=== PATIENT | female | born 1990 | race Two or more races ===

== ENCOUNTER 2016-05-03 11:51 | Emergency (ER) | payer OTHER ==
[2016-05-03 12:04] VITALS: BP 111/70; PULSE 106; TEMP 99; BMI 18.8
--- NOTE | 2016-05-03 12:37 | PDOC ---
History of Present Illness - General Chief Complaint: Sore Throat Stated Complaint: SORE THROAT Time Seen by Provider: 05/03/16 12:09 History Source: Patient Exam Limitations: No Limitations - History of Present Illness Initial Comments: CHIEF COMPLAINT: HISTORY OF PRESENT ILLNESS: Vital signs on arrival are notable for pulse of 108. REVIEW OF SYSTEMS: GENERAL/CONSTITUTIONAL: Subjective fever/chills. No weakness. No weight change. HEAD, EYES, EARS, NOSE AND THROAT: No change in vision. No ear pain or discharge. No sore throat. CARDIOVASCULAR: No chest pain or shortness of breath. RESPIRATORY: No cough, wheezing, or hemoptysis. GASTROINTESTINAL: See history of present illness. GENITOURINARY: No dysuria, frequency, or change in urination. MUSCULOSKELETAL: No joint or muscle swelling or pain. No neck or back pain. SKIN: No rash or easy bruising. NEUROLOGIC: No headache, vertigo, loss of consciousness, or loss of sensation. PSYCHIATRIC: No depression or anxiety. ENDOCRINE: No increased thirst. No abnormal weight change. HEMATOLOGIC/LYMPHATIC: No anemia, easy bleeding, or history of blood clots. ALLERGIC/IMMUNOLOGIC: No hives or skin allergy. No latex allergy. PHYSICAL EXAM: GENERAL: The patient is awake, alert, and fully oriented, in no acute distress. HEAD: Normal with no signs of trauma. ENT: Pupils equal, round and reactive to light, extraocular movements intact, sclera anicteric, conjunctiva clear. Neck supple. LUNGS: Clear to auscultation bilaterally. Normal excursion. No respiratory distress or use of accessory muscles. CV: RRR, S1/S2, no MRG. Cap refill < 2 sec. ABDOMEN: Soft, non-distended, non-tender even to deep palpation, no hepatomegaly or splenomegaly, no masses. EXTREMITIES: Normal range of motion, no edema. NEUROLOGICAL: Normal speech, normal gait. CN II-XII grossly intact. PSYCH: Normal mood, normal affect. SKIN: Warm, dry, normal turgor, no rashes or lesions noted. Past History - Past Medical History Allergies/Adverse Reactions: Allergies Allergy/AdvReac Type Severity Reaction Status Date / Time shellfish derived Allergy Verified 05/03/16 12:02 shrimp Allergy Intermediate Swelling Uncoded 05/03/16 12:02 Home Medications: Ambulatory Orders NK [No Known Home Medication] 01/24/15 Asthma: No Cancer: No Cardiac Disorders: No Diabetes: No HTN: No Seizures: No Thyroid Disease: No Other medical history: none - Reproductive History (#): 4 Para: 1 Spontaneous : 2 - Immunization History Td Vaccination: No TDAP Vaccination: No Immunization Up to Date: No - Psycho/Social/Smoking Cessation Hx Anxiety: No Suicidal Ideation: No Smoking Status: No Smoking History: Never smoked Have you smoked in the past 12 months: Yes Number of Cigarettes Smoked Daily: 3 Information on smoking cessation initiated: Yes 'Breaking Loose' booklet given: 05/03/16 Hx Alcohol Use: No Drug/Substance Use Hx: No Substance Use Type: None Hx Substance Use Treatment: No *Physical Exam - Vital Signs Last Vital Signs Temp Pulse Resp BP Pulse Ox 99.0 F 106 H 18 111/70 100 05/03/16 12:02 05/03/16 12:02 05/03/16 12:02 05/03/16 12:02 05/03/16 12:02
[2016-05-03] MEDS ORDERED: IBUPROFEN 400 MG TABLET (FP) PO ONE ×2 (12:50→12:52)
--- NOTE | 2016-05-03 12:50 | PDOC ---
History of Present Illness - General Chief Complaint: Sore Throat Stated Complaint: SORE THROAT Time Seen by Provider: 05/03/16 12:09 History Source: Patient - History of Present Illness Timing/Duration: reports: other Associated Symptoms: reports: fever/chills, sore throat. denies: cough, earache , nasal congestion, nasal drainage, shortness of breath Past History - Past Medical History Allergies/Adverse Reactions: Allergies Allergy/AdvReac Type Severity Reaction Status Date / Time shellfish derived Allergy Verified 05/03/16 12:02 shrimp Allergy Intermediate Swelling Uncoded 05/03/16 12:02 Home Medications: Ambulatory Orders NK [No Known Home Medication] 01/24/15 Asthma: No Cancer: No Cardiac Disorders: No Diabetes: No HTN: No Seizures: No Thyroid Disease: No Other medical history: none - Reproductive History (#): 4 Para: 1 Spontaneous : 2 - Immunization History Td Vaccination: No TDAP Vaccination: No Immunization Up to Date: No - Psycho/Social/Smoking Cessation Hx Anxiety: No Suicidal Ideation: No Smoking Status: No Smoking History: Never smoked Have you smoked in the past 12 months: No Number of Cigarettes Smoked Daily: 3 Information on smoking cessation initiated: Yes 'Breaking Loose' booklet given: 05/03/16 Hx Alcohol Use: No Drug/Substance Use Hx: No Substance Use Type: None Hx Substance Use Treatment: No Review of Systems - Review of Systems Constitutional: Yes: Fever HEENTM: Yes: Throat Pain Respiratory: No: Cough, Shortness of Breath *Physical Exam - Vital Signs Last Vital Signs Temp Pulse Resp BP Pulse Ox 99.0 F 106 H 18 111/70 100 05/03/16 12:02 05/03/16 12:02 05/03/16 12:02 05/03/16 12:02 05/03/16 12:02 - Physical Exam General Appearance: Yes: Appropriately Dressed. No: Apparent Distress HEENT: positive: Normal ENT Inspection, TMs Normal, Pharynx Normal, Muffled/ Hoarse voice. negative: Scleral Icterus (R), Scleral Icterus (L) Neck: positive: Supple. negative: Lymphadenopathy (R), Lymphadenopathy (L) Respiratory/Chest: negative: Respiratory Distress Integumentary: positive: Dry, Warm Neurologic: positive: Fully Oriented, Alert, Normal Mood/Affect Medical Decision Making - Medical Decision Making 05/03/16 12:52 26 yo F, social smoker, here w/ sore throat w/ hoarseness and subj fever x 3 days. Multiple children at home w/ similar symptoms. Pt well christi w/ mild tachycardia but unremarkable exam otherwise. M/l viral. Dc w/ supportive treatment *DC/Admit/Observation/Transfer Diagnosis at time of Disposition: URI (upper respiratory infection) Qualifiers: URI type: unspecified viral URI Qualified Code(s): J06.9 - Acute upper respiratory infection, unspecified - Discharge Dispostion Disposition: HOME Condition at time of disposition: Good - Patient Instructions Printed Discharge Instructions: DI for Viral Upper Respiratory Infection -- Adult
== END 2016-05-03 12:53 | disposition home or self-care (01) ==
LOC: JERFT 11:51
DX: J06.9 Acute upper respiratory infection, unspecified (principal); F17.210 Nicotine dependence, cigarettes, uncomplicated
CPT/HCPCS: 84703; 99281-25

== ENCOUNTER 2017-11-26 10:43 | Emergency (ER) | payer SELFPAY ==
[2017-11-26 10:55] VITALS: BP 105/65; PULSE 76; TEMP 98.6; BMI 20.1
--- NOTE | 2017-11-26 11:39 | PDOC ---
History of Present Illness - General Chief Complaint: Injury Stated Complaint: LEFT FOOT PAIN Time Seen by Provider: 11/26/17 11:00 History Source: Patient Exam Limitations: No Limitations - History of Present Illness Initial Comments: 11/26/17 13:30 States was out last night, twisted foot and fell with hyperextension of left foot. Patient here with complaints of mid foot and ankle pain. Was able to walk- in but states his been hopping since yesterday. Has used no medication or relief Occurred: reports: just prior to arrival Severity: reports: mild, moderate Pain Location: reports: lower extremity (left foot and ankle ) Method of Injury: Yes: unknown, fall Modifying Factors: improves with: cold therapy Associated Symptoms (Fall): denies symptoms Past History - Travel Traveled outside of the country in the last 30 days: No Close contact w/someone who was outside of country & ill: No - Past Medical History Allergies/Adverse Reactions: Allergies Allergy/AdvReac Type Severity Reaction Status Date / Time shellfish derived Allergy Verified 11/26/17 10:47 shrimp Allergy Intermediate Swelling Uncoded 11/26/17 10:47 Home Medications: Ambulatory Orders Naproxen [Naprosyn -] 500 mg PO TID #30 tablet 11/26/17 Asthma: No Cancer: No Cardiac Disorders: No COPD: No Diabetes: No HTN: No Seizures: No Thyroid Disease: No - Reproductive History (#): 4 Para: 1 Spontaneous : 2 - Immunization History Td Vaccination: No TDAP Vaccination: No Immunization Up to Date: No - Suicide/Smoking/Psychosocial Hx Smoking Status: No Smoking History: Current every day smoker Have you smoked in the past 12 months: No Number of Cigarettes Smoked Daily: 3 Information on smoking cessation initiated: Yes 'Breaking Loose' booklet given: 11/26/17 Hx Alcohol Use: No Drug/Substance Use Hx: No Substance Use Type: None Hx Substance Use Treatment: No Review of Systems - Review of Systems Able to Perform ROS?: Yes Is the patient limited Serbian proficient: Yes Constitutional: Yes: Symptoms Reported, See HPI, Malaise Musculoskeletal: Yes: Symptoms Reported, See HPI, Joint Pain, Joint Swelling Integumentary: Yes: Symptoms Reported, See HPI, Bruising Neurological: Yes: Symptoms reported, See HPI All Other Systems: Reviewed and Negative *Physical Exam - Vital Signs Last Vital Signs Temp Pulse Resp BP Pulse Ox 98.6 F 76 18 105/65 100 11/26/17 10:47 11/26/17 10:47 11/26/17 10:47 11/26/17 10:47 11/26/17 10:47 - Physical Exam General Appearance: Yes: Nourished, Appropriately Dressed, Apparent Distress, Mild Distress HEENT: positive: MADDI, Normal ENT Inspection, Normal Voice, TMs Normal, Pharynx Normal Neck: positive: Supple. negative: Tender Respiratory/Chest: positive: Lungs Clear Musculoskeletal: positive: Normal Inspection Extremity: positive: Normal Capillary Refill, Swelling (with tenderness along the midfoot, no crepitus or step-offs, has no true point tenderness to medial or lateral malleolus, negative squeeze test). 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 Cast shoe and crutches provided. *DC/Admit/Observation/Transfer Diagnosis at time of Disposition: Left ankle sprain Qualifiers: Encounter type: initial encounter Involved ligament of ankle: unspecified ligament Qualified Code(s): S93.402A - Sprain of unspecified ligament of left ankle, initial encounter - Discharge Dispostion Disposition: HOME Condition at time of disposition: Stable Decision to Admit order: No - Prescriptions Prescriptions: Naproxen [Naprosyn -] 500 mg PO TID #30 tablet - Referrals - Patient Instructions Printed Discharge Instructions: DI for Ankle Sprain Additional Instructions: Rest, ice to area on and off for 15 minutes 4-6 times a day Avoid heavy lifting or exercise until pain and swelling is resolved or until further directed Keep area highly elevated to reduce swelling Use splints/David wrap as directed Followup with orthopedist in one to 2 days if not improving, if significantly improved may wait one week for followup with orthopedist May use Naprosyn 1500 milligram tablet every 8 hours as needed for pain - Post Discharge Activity
== END 2017-11-26 12:43 | disposition home or self-care (01) ==
LOC: JERFT 10:43 → JER 10:43 → JERFT 12:43
DX: S93.402A Sprain of unspecified ligament of left ankle, initial encounter (principal); X58.XXXA Exposure to other specified factors, initial encounter; Y93.89 Activity, other specified; Y92.9 Unspecified place or not applicable; F17.210 Nicotine dependence, cigarettes, uncomplicated
CPT/HCPCS: 73610-TC-LT-FY; 84703; 99281-25

== ENCOUNTER 2018-01-01 15:28 | Emergency (ER) | payer SELFPAY ==
[2018-01-01 15:34] VITALS: BP 115/71; PULSE 60; TEMP 99; BMI 19.2
[2018-01-01] MEDS ORDERED: KETOROLAC TROMETHAMINE 60 MG/2 ML VIAL IM ONE (15:58)
[2018-01-01] MEDS ORDERED: KETOROLAC TROMETHAMINE 60 MG/2 ML VIAL ONE (16:03)
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
== END 2018-01-01 16:11 | disposition home or self-care (01) ==
LOC: JERFT 15:28
PROC: 3E0233Z Introduction of Anti-inflammatory into Muscle, Percutaneous Approach (ICD-10-PCS; principal; 2018-01-01)
DX: S03.42XA Sprain of jaw, left side, initial encounter (principal); M26.622 Arthralgia of left temporomandibular joint
CPT/HCPCS: 99281-25

== ENCOUNTER 2018-03-12 13:28 | Emergency (ER) | payer SELFPAY ==
[2018-03-12] MEDS ORDERED: IBUPROFEN 400 MG TABLET (FP) PO ONE (13:32)
[2018-03-12 13:33] VITALS: BP 118/79; PULSE 80; TEMP 98.7; BMI 21.0
--- NOTE | 2018-03-12 13:58 | PDOC ---
History of Present Illness - General Chief Complaint: Ear Problem Stated Complaint: PAIN Time Seen by Provider: 03/12/18 13:50 History Source: Patient Exam Limitations: No Limitations - History of Present Illness Initial Comments: 03/12/18 13:54 28 yr female with impacted wisdom teeth lower bilaterally. pt has pain to right ear and both lower sides of her jaw. no fever no sore throat. Timing/Duration: 24 hours Severity: moderate Associated Symptoms: reports: denies symptoms Past History - Past Medical History Allergies/Adverse Reactions: Allergies Allergy/AdvReac Type Severity Reaction Status Date / Time shellfish derived Allergy Verified 03/12/18 13:29 shrimp Allergy Intermediate Swelling Uncoded 03/12/18 13:29 Home Medications: Ambulatory Orders Amoxicillin - [Amoxicillin 500mg Capsule -] 500 mg PO TID #21 capsule 03/12/18 Asthma: No Cancer: No Cardiac Disorders: No COPD: No Diabetes: No HTN: No Seizures: No Thyroid Disease: No - Reproductive History (#): 4 Para: 1 Spontaneous : 2 - Immunization History Td Vaccination: No TDAP Vaccination: No Immunization Up to Date: No - Suicide/Smoking/Psychosocial Hx Smoking Status: No Smoking History: Smoker current status UNK Have you smoked in the past 12 months: No Number of Cigarettes Smoked Daily: 3 'Breaking Loose' booklet given: 05/03/16 Hx Alcohol Use: No Drug/Substance Use Hx: No Substance Use Type: None Hx Substance Use Treatment: No Review of Systems - Review of Systems Able to Perform ROS?: Yes Is the patient limited Maltese proficient: No Constitutional: No: Symptoms Reported HEENTM: Yes: Symptoms Reported *Physical Exam - Vital Signs Last Vital Signs Temp Pulse Resp BP Pulse Ox 98.7 F 80 16 118/79 99 03/12/18 13:29 03/12/18 13:29 03/12/18 13:29 03/12/18 13:29 03/12/18 13:29 - Physical Exam General Appearance: Yes: Nourished, Appropriately Dressed HEENT: positive: EOMI, MADDI, TM Bulging, TM Erythema (right), Other (bilateral lower impacted wisom teeth, mild erythema surrounding thr right lower tooth, neg trismus) Neck: positive: Supple. negative: Tender Respiratory/Chest: positive: Lungs Clear, Normal Breath Sounds. negative: Chest Tender Extremity: positive: Normal Capillary Refill, Normal Inspection, Normal Range of Motion Integumentary: positive: Normal Color, Dry, Warm ED Treatment Course - Medications Given in the ED: ED Medications Discontinued Medications Generic Name Dose Route Start Last Admin Trade Name Radu PRN Reason Stop Dose Admin Ibuprofen 800 mg 03/12/18 13:32 03/12/18 13:32 Motrin - PO 03/12/18 13:33 800 mg NOW ONE Administration Medical Decision Making - Medical Decision Making 03/12/18 13:55 cc: right ear pain, impacted wisdom teeth pt has appointment for next week for removal will place on Amox for ear infection, possible early dental infection gargle with warm salt water 4-5 times a day take ibuprofen for pain *DC/Admit/Observation/Transfer Diagnosis at time of Disposition: Tooth, impacted Otitis media Qualifiers: Otitis media type: suppurative Chronicity: acute Laterality: right Recurrence: not specified as recurrent Spontaneous tympanic membrane rupture: without spontaneous rupture Qualified Code(s): H66.001 - Acute suppurative otitis media without spontaneous rupture of ear drum, right ear - Discharge Dispostion Disposition: HOME Condition at time of disposition: Good - Prescriptions Prescriptions: Amoxicillin - [Amoxicillin 500mg Capsule -] 500 mg PO TID #21 capsule - Referrals - Patient Instructions Additional Instructions: soft foods room temperature fluids take ibuprofen 600mg every 8hrs for pain (over the counter ibuprofen, motrin or advil take 600mg) take the Amox as directed for 7 days follow with your dentist as planned Return if any worsening symptoms - Post Discharge Activity
== END 2018-03-12 14:05 | disposition home or self-care (01) ==
LOC: JERFT 13:28
DX: K01.1 Impacted teeth (principal)
CPT/HCPCS: 99281-25

== ENCOUNTER 2018-03-23 19:20 | Emergency (ER) | payer OTHER ==
[2018-03-23 19:41] VITALS: TEMP 98.6; BMI 20.1
--- NOTE | 2018-03-23 19:41 | PDOC ---
Rapid Medical Evaluation Time Seen by Provider: 03/23/18 19:38 Medical Evaluation: Allergies Allergy/AdvReac Type Severity Reaction Status Date / Time shellfish derived Allergy Verified 03/12/18 13:29 shrimp Allergy Intermediate Swelling Uncoded 03/12/18 13:29 I have performed a brief in-person evaluation of this patient. The patient presents with a chief complaint of: vomiting x 3 hours. LMP Pertinent physical exam findings: none I have ordered the following: hcg The patient will proceed to the ED for further evaluation. Discharge Disposition - Diagnosis Vomiting - Referrals - Patient Instructions - Post Discharge Activity
[2018-03-23] MEDS ORDERED: ONDANSETRON *ODT* 4 MG TABLET SL ONE (20:40)
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
[2018-03-23] MEDS ORDERED: ONDANSETRON *ODT* 4 MG TABLET ONE (20:45)
[2018-03-23 21:15] LABS: URINE APPEARANCE CLOUDY; URINE BILIRUBIN NEGATIVE (<2.0 mg/dL); URINE COLOR YELLOW; URINE GLUCOSE (UA) NEGATIVE (NEGATIVE); URINE KETONE TRACE (NEGATIVE); URINE LEUK ESTERASE NEGATIVE (NEGATIVE); URINE NITRITE NEGATIVE (NEGATIVE); URINE PROTEIN NEGATIVE (NEGATIVE); URINE UROBILINOGEN NEGATIVE mg/dL (0.2-1.0)
[2018-03-23] MEDS ORDERED: MAG HYDROX/AL HYDROX/SIMETH 30 ML UNIT-DOSE CUP PO ONE (21:42)
[2018-03-23] MEDS ORDERED: MAG HYDROX/AL HYDROX/SIMETH 30 ML UNIT-DOSE CUP ONE (21:48)
[2018-03-23 23:29] VITALS: BP 113/60; PULSE 100
[2018-03-23] MEDS ORDERED: ACETAMINOPHEN 325 MG TABLET (FP) PO ONE (23:32)
[2018-03-23] MEDS ORDERED: ACETAMINOPHEN 325 MG TABLET (FP) ONE (23:36)
== END 2018-03-23 23:44 | disposition home or self-care (01) ==
LOC: JER 19:20
DX: K52.9 Noninfective gastroenteritis and colitis, unspecified (principal)
CPT/HCPCS: 81003; 84703; 99282-25; Q0162

== ENCOUNTER 2018-08-13 14:19 | Emergency (ER) | payer OTHER ==
[2018-08-13 14:37] VITALS: TEMP 98.1; BMI 22.8
[2018-08-13] MEDS ORDERED: IBUPROFEN 400 MG TABLET (FP) PO ONE ×2 (15:13→15:22)
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
[2018-08-14 01:15] VITALS: BP 116/84; PULSE 89
== END 2018-08-13 22:00 | disposition short-term general hospital (02) ==
LOC: JERFT 14:19 → JER 14:19
DX: S02.69XA Fracture of mandible of other specified site, initial encounter for closed fracture (principal); S00.81XA Abrasion of other part of head, initial encounter; S30.810A Abrasion of lower back and pelvis, initial encounter; S80.212A Abrasion, left knee, initial encounter; Y04.2XXA Assault by strike against or bumped into by another person, initial encounter; Y93.89 Activity, other specified; Y92.480 Sidewalk as the place of occurrence of the external cause; Y99.8 Other external cause status; Y07.59 Other non-family member, perpetrator of maltreatment and neglect
CPT/HCPCS: 70486-TC; 73562-TC-LT-FY; 84703; 99284-25

== ENCOUNTER 2020-01-23 15:21 | Inpatient (IN) | payer OTHER ==
[2020-01-23 17:02] VITALS: BMI 22.1
--- NOTE | 2020-01-23 17:29 | BHS.RME ---
Substance Use & Tx History - Substance Use History Alcohol Substance amount: 2-4 pints Vodka Frequency of use: Daily Substance route: Oral Date of Last Use: 01/23/20 Cocaine- Powder Substance amount: 2-3grams Frequency of use: Daily Substance route: Inhalation (ex: sniffing or snorting) Date of Last Use: 01/19/20 Ecstasy Substance amount: 3 pills Frequency of use: Daily Substance route: Oral Date of Last Use: 01/19/20 Physical/Psych/Mental Status - Behavior General Behavior: Increased activity (restlessness, agitation) Eye Contact: Normal - Cooperativeness Cooperativeness: Cooperative - Thinking Thought Processes: Tight - Physical Health Problems Is patient presently having any pain?: No Does patient presently have any injuries (include location): No Does patient currently have a fever: No Is patient : No CIWA Nausea/Vomitin-No Nausea/No Vomiting Muscle Tremors: 4-Moderate,w/Arms Extend Anxiety: 4-Mod. Anxious/Guarded Agitation: 2 Paroxysmal Sweats: 2 Orientation: 0-Oriented Tacttile Disturbances: 0-None Auditory Disturbances: 0-None Visual Disturbances: 0-None Headache: 2-Mild CIWA-Ar Total Score: 14
[2020-01-23] MEDS ORDERED: chlordiazePOXIDE HCL 25 MG CAPSULE PO PRN (17:40)
[2020-01-23] MEDS ORDERED: NICOTINE POLACRILEX 2 MG GUM BUC PRN (17:40)
[2020-01-23] MEDS ORDERED: IBUPROFEN 400 MG TABLET (FP) PO PRN (17:40)
[2020-01-23] MEDS ORDERED: MENTHOL/PHENOL 1 EACH UD MM PRN (17:40)
[2020-01-23] MEDS ORDERED: ONDANSETRON *ODT* 4 MG TABLET SL PRN (17:40)
[2020-01-23] MEDS ORDERED: METHOCARBAMOL 500 MG TABLET PO PRN (17:40)
[2020-01-23] MEDS ORDERED: MAG HYDROX/AL HYDROX/SIMETH 30 ML UNIT-DOSE CUP PO PRN (17:40)
[2020-01-23] MEDS ORDERED: MAGNESIUM HYDROX 2400MG/30ML ORAL SUSPENSION 30 ML CUP PO PRN (17:40)
[2020-01-23] MEDS ORDERED: ACETAMINOPHEN 325 MG TABLET (FP) PO PRN ×2 (17:40)
[2020-01-23] MEDS ORDERED: BISMUTH SUBSALICYLATE 524 MG/30 ML UD PO PRN (17:40)
[2020-01-23] MEDS ORDERED: MAGNESIUM CITRATE 300 ML BOTTLE PO PRN (17:40)
--- NOTE | 2020-01-23 18:13 | HP ---
CIWA Score Nausea/Vomitin-No Nausea/No Vomiting Muscle Tremors: 4-Moderate,w/Arms Extend Anxiety: 4-Mod. Anxious/Guarded Agitation: 2 Paroxysmal Sweats: 2 Orientation: 0-Oriented Tacttile Disturbances: 0-None Auditory Disturbances: 0-None Visual Disturbances: 0-None Headache: 2-Mild CIWA-Ar Total Score: 14 - Admission Criteria OASAS Guidelines: Admission for Medically Managed Detox: Requires at least one of the followin. CIWA greater than 12 2. Seizures within the past 24 hours 3. Delirium tremens within the past 24 hours 4. Hallucinations within the past 24 hours 5. Acute intervention needed for co occurring medical disorder 6. Acute intervention needed for co occurring psychiatric disorder 7. Severe withdrawal that cannot be handled at a lower level of care (continued vomiting, continued diarrhea, abnormal vital signs) requiring intravenous medication and/or fluids 8. Patient presents the following: CIWA greater than 12 Admission Criteria Met: Admission criteria met Admitting History and Physical - Admission Chief Complaint: I want to detox from alcohol. History of Present Illness: Patient is a 29 y/o female with past medical history of alcohol, cocaine and ecstasy use disorder presented to [facility] for alcohol detox. Started drinking alcohol since age 14, currently drinking 1 pint of vodka daily. + blackouts and eyeopener. Denies seizures.Was treated in the past for chlamydia. - Past Medical History ...LMP: 05/23/12 - Smoking History Smoking history: Never smoked Have you smoked in the past 12 months: No Aproximately how many cigarettes per day: 3 - Alcohol/Substance Use Hx Alcohol Use: No Admission ROS BHS - HPI Chief Complaint: I want detox Allergies/Adverse Reactions: Allergies Allergy/AdvReac Type Severity Reaction Status Date / Time shellfish derived Allergy Verified 01/23/20 17:56 shrimp Allergy Intermediate Swelling Uncoded 01/23/20 17:56 Exam Limitations: No Limitations - Ebola screening Have you traveled outside of the country in the last 21 days: No Have you had contact with anyone from an Ebola affected area: No Have you been sick,other than usual withdrawal symptoms: No Do you have a fever: No - Review of Systems Constitutional: Loss of Appetite, Night Sweats, Weakness EENT: reports: No Symptoms Reported Respiratory: reports: No Symptoms reported Cardiac: reports: No Symptoms Reported GI: reports: No Symptoms Reported : reports: No Symptoms Reported Musculoskeletal: reports: No Symptoms Reported Integumentary: reports: No Symptoms Reported Neuro: reports: Tremors Endocrine: reports: No Symptoms Reported Hematology: reports: No Symptoms Reported Psychiatric: reports: Judgement Intact, Mood/Affect Appropiate, Orientated x3, Anxious Other Systems: Reviewed and Negative Patient History - Patient Medical History Hx Asthma: No Hx Chronic Obstructive Pulmonary Disease (COPD): No Hx Cancer: No Hx Cardiac Disorders: No Hx Hypertension: No Hx Hypercholesterolemia: No Hx Pacemaker: No HX Cerebrovascular Accident: No Hx Seizures: No Hx Diabetes: No Hx Gastrointestinal Disorders: No Hx Liver Disease: No Hx Genitourinary Disorders: No Hx Sexually Transmitted Disorders: Yes (was treated for chlamydia in the past) Hx Renal Disease (ESRD): No Hx Thyroid Disease: No Hx Human Immunodeficiency Virus (HIV): No Hx Depression: No - Patient Surgical History Past Surgical History: No - PPD History Date: 03/23/12 - Reproductive History Last Menstrual Period: 05/23/12 - Smoking Cessation Smoking history: Never smoked Have you smoked in the past 12 months: No Aproximately how many cigarettes per day: 3 Hx Chewing Tobacco Use: No - Substance & Tx. History Hx Alcohol Use: Yes Hx Substance Use: Yes Substance Use Type: Alcohol, Cocaine Hx Substance Use Treatment: Yes (was her last year) - Substances abused Alcohol Substance route: Oral Frequency: Daily Amount used: 1 pint Age of first use: 18 Date of last use: 01/23/20 Cocaine Substance route: Smoking Frequency: Daily Amount used: 2-3 grams Age of first use: 19 Date of last use: 01/23/20 Admission Physical Exam S - Vital Signs Vital Signs: Vital Signs - 24 hr 01/23/20 17:00 Temperature 98.0 F Pulse Rate 97 H Respiratory 18 Rate Blood Pressure 98/74 - Physical General Appearance: Yes: Within Normal Limits, No Apparent Distress, Tremorous HEENTM: Yes: Within Normal Limits, Hearing grossly Normal Respiratory: Yes: Within Normal Limits, Lungs Clear, Normal Breath Sounds Neck: Yes: Within Normal Limits Breast: Yes: Breast Exam Deferred Cardiology: Yes: Within Normal Limits, Regular Rhythm, Regular Rate, S1, S2 Abdominal: Yes: Within Normal Limits Genitourinary: Yes: Within Normal Limits Back: Yes: Within Normal Limits Musculoskeletal: Yes: Within Normal Limits Extremities: Yes: Within Normal Limits, Normal Capillary Refill, Normal Inspection, Normal Range of Motion Neurological: Yes: Within Normal Limits, Fully Oriented, Alert, Normal Response Integumentary: Yes: Within Normal Limits, Normal Color, Dry, Warm - Diagnostic (1) Alcohol dependence with uncomplicated withdrawal Current Visit: Yes Status: Acute (2) Cocaine abuse Current Visit: Yes Status: Chronic Cleared for Admission S - Detox or Rehab [facility] Level of Care: Medically Managed Detox Regimen/Protocol: Librium Breathalyzer - Breathalyzer Breathalyzer: 0.046 Urine Drug Screen - Test Device Lot number: [id number] Expiration date: 07/24/21 - Control Is test valid?: Yes - Results Drug screen NEGATIVE: Yes Inpatient Rehab Admission - Rehab Decision to Admit Inpatient rehab admission?: No
[2020-01-23] MEDS: chlordiazePOXIDE HCL 25 MG CAPSULE PO SCH ×2 (19:06→22:21)
[2020-01-23] MEDS: hydrOXYzine PAMOATE 25 MG CAPSULE (FP) PO SCH ×2 (19:06→22:21)
[2020-01-23] MEDS: THIAMINE HCL 100 MG TABLET (FP) PO SCH (22:21)
[2020-01-23] MEDS: MELATONIN 5 MG TABLETS PO SCH (22:21)
[2020-01-24] MEDS: hydrOXYzine PAMOATE 25 MG CAPSULE (FP) PO SCH ×5 (05:34→22:52)
[2020-01-24] MEDS: chlordiazePOXIDE HCL 25 MG CAPSULE PO SCH ×4 (05:35→22:52)
[2020-01-24 10:33] LABS: HEMATOCRIT 37.9 % (32.4-45.2); HEMOGLOBIN 13.5 GM/dL (10.7-15.3); MCH 32.5 pg (25.7-33.7); MCHC 35.6 g/dl (32.0-36.0); MEAN CELL VOLUME 91.1 fl (80-96); MEAN PLT VOLUME 9.2 fl (7.5-11.1); PLATELET COUNT 126 K/MM3 (134-434); RBC 4.15 M/mm3 (3.60-5.2); RDW 14.2 % (11.6-15.6)
[2020-01-24 10:35] LABS: BILIRUBIN,TOTAL 0.8 mg/dL (0.2-1); BLOOD UREA NITROGEN 10.7 mg/dL (7-18); CALCIUM 8.7 mg/dL (8.5-10.1); CREATININE 0.5 mg/dL (0.55-1.3); POTASSIUM 3.7 mmol/L (3.5-5.1); TOT PROT 5.9 g/dl (6.4-8.2)
[2020-01-24] MEDS: NICOTINE 7 MG/24 HOURS TOPICAL PATCH TD SCH (11:06)
[2020-01-24] MEDS: PRENATAL VITAMINS W/ FOLIC ACID TABLET (FP) PO SCH (11:06)
--- NOTE | 2020-01-24 11:23 | CONSULT ---
[facility] Psychiatric Consult - Data Date of interview: 01/24/20 Admission source: [facility] Identifying data: Patient is a 29 year old single female, mother of two, unemployed, homeless, and is not currently supported with financially assistance. This is one of multiple admissions for patient. Patient admitted to for alcohol dependence. Substance Abuse History: - Smoking Cessation. Smoking history: Never smoked. Have you smoked in the past 12 months: No. Aproximately how many cigarettes per day: 3. Hx Chewing Tobacco Use: No. - Substance & Tx. History. Hx Alcohol Use: Yes. Hx Substance Use: Yes. Substance Use Type: Alcohol, Cocaine. Hx S ubstance Use Treatment: Yes (was her last year). - Substances abused. Alcohol. Substance route: Oral. Frequency: Daily. Amount used: 1 pint. Age of first use: 18. Date of last use: 01/23/20. Cocaine. Substance route: Smoking. Frequency: Daily. Amount used: 2-3 grams. Age of first use: 19. Date of last use: 01/23/20 Medical History: Treated for chlamydia in the past. Psychiatric History: Ms. Lam first psychiatric contact was as at 19 years of age while living in a senior care. States that she saw a psychiatrist due to behavior disturbances and was diagnosed with ADHD and treated with psychotropic medications. Treatment was discontinued after several months due to patient being discharged from the senior care. Ms. Lam next psychiatric contact was at 28 years of age while living in the [facility] in [place]. She reports seeing a psychiatrist once and then discontinued treatment. No medications were prescribed. Patient is not currently followed by a psychiatrist. At present patient reports stable mood. Mental Status Exam - Mental Status Exam Alert and Oriented to: Time, Place, Person Cognitive Function: Good Patient Appearance: Well Groomed Mood: Withdrawn Affect: Mood Congruent Patient Behavior: Cooperative Speech Pattern: Appropriate Voice Loudness: Normal Thought Process: Goal Oriented Thought Disorder: Not Present Hallucinations: Denies Suicidal Ideation: Denies Homicidal Ideation: Denies Insight/Judgement: Poor Sleep: Fair Appetite: Fair Muscle strength/Tone: Normal Gait/Station: Other Psychiatric Findings - Problem List (Rison 1, 2,3) (1) Alcohol dependence with uncomplicated withdrawal Current Visit: Yes Status: Acute (2) Cocaine abuse Current Visit: Yes Status: Chronic - Initial Treatment Plan Initial Treatment Plan: Psychoeducation provided. Detoxification in progress. Observation.
--- NOTE | 2020-01-24 13:28 | EKG ---
Test Reason : Blood Pressure : / mmHG Vent. Rate : 100 BPM Atrial Rate : 100 BPM P-R Int : 130 ms QRS Dur : 076 ms QT Int : 344 ms P-R-T Axes : 002 009 016 degrees QTc Int : 443 ms NORMAL SINUS RHYTHM POSSIBLE LEFT ATRIAL ENLARGEMENT LEFT VENTRICULAR HYPERTROPHY ABNORMAL ECG NO PREVIOUS ECGS AVAILABLE Confirmed by EDGARD LYN, JOANNE ([id number]) on 01/24/2020 1:27:39 PM Referred By: Confirmed By:JOANNE RENE MD
--- NOTE | 2020-01-24 14:08 | PN ---
S CIWA - CIWA Score Nausea/Vomitin Muscle Tremors: 2 Anxiety: 2 Agitation: 2 Paroxysmal Sweats: 1-Minimal Palms Moist Orientation: 0-Oriented Tacttile Disturbances: 1-Very Mild Itch/Numbness Auditory Disturbances: 0-None Visual Disturbances: 0-None Headache: 2-Mild CIWA-Ar Total Score: 12 BHS Progress Note (SOAP) Subjective: alert,irritable,anxious,interrupted sleep,tremor,aching pain in the body and back,ambulation on the uint Objective: 01/24/20 18:22 Vital Signs Temperature 97.5 F L 01/24/20 17:19 Pulse Rate 98 H 01/24/20 17:19 Respiratory Rate 16 01/24/20 17:19 Blood Pressure 113/77 01/24/20 17:19 O2 Sat by Pulse Oximetry (%) 99 01/24/20 13:29 01/24/20 18:22 Laboratory Last Values WBC 6.0 K/mm3 (4.0-10.0) 01/24/20 07:00 RBC 4.15 M/mm3 (3.60-5.2) 01/24/20 07:00 Hgb 13.5 GM/dL (10.7-15.3) 01/24/20 07:00 Hct 37.9 % (32.4-45.2) 01/24/20 07:00 MCV 91.1 fl (80-96) 01/24/20 07:00 MCH 32.5 pg (25.7-33.7) 01/24/20 07:00 MCHC 35.6 g/dl (32.0-36.0) 01/24/20 07:00 RDW 14.2 % (11.6-15.6) 01/24/20 07:00 Plt Count 126 K/MM3 (134-434) L D 01/24/20 07:00 MPV 9.2 fl (7.5-11.1) 01/24/20 07:00 Sodium 138 mmol/L (136-145) 01/24/20 07:00 Potassium 3.7 mmol/L (3.5-5.1) 01/24/20 07:00 Chloride 103 mmol/L (98-107) 01/24/20 07:00 Carbon Dioxide 27 mmol/L (21-32) 01/24/20 07:00 Anion Gap 7 MMOL/L (8-16) L 01/24/20 07:00 BUN 10.7 mg/dL (7-18) 01/24/20 07:00 Creatinine 0.5 mg/dL (0.55-1.3) L 01/24/20 07:00 Est GFR (CKD-EPI)AfAm 153.73 01/24/20 07:00 Est GFR (CKD-EPI)NonAf 132.64 01/24/20 07:00 Random Glucose 78 mg/dL (74-106) 01/24/20 07:00 Calcium 8.7 mg/dL (8.5-10.1) 01/24/20 07:00 Total Bilirubin 0.8 mg/dL (0.2-1) 01/24/20 07:00 AST 16 U/L (15-37) 01/24/20 07:00 ALT 23 U/L (13-61) 01/24/20 07:00 Alkaline Phosphatase 70 U/L (45-117) 01/24/20 07:00 Total Protein 5.9 g/dl (6.4-8.2) L 01/24/20 07:00 Albumin 3.0 g/dl (3.4-5.0) L 01/24/20 07:00 POC Urine HCG, Qual Negative 01/23/20 17:03 Syphilis Serology Non-reactive (NONREACTIVE) 01/23/20 07:00 Assessment: 01/24/20 18:23 withdrawal symptom Plan: continue detox librium regimen
[2020-01-24] MEDS: THIAMINE HCL 100 MG TABLET (FP) PO SCH (22:52)
[2020-01-24] MEDS: MELATONIN 5 MG TABLETS PO SCH (22:52)
[2020-01-25] MEDS: chlordiazePOXIDE HCL 25 MG CAPSULE PO SCH ×4 (06:15→22:02)
[2020-01-25] MEDS: hydrOXYzine PAMOATE 25 MG CAPSULE (FP) PO SCH ×5 (06:15→22:02)
[2020-01-25] MEDS: PRENATAL VITAMINS W/ FOLIC ACID TABLET (FP) PO SCH (10:40)
[2020-01-25] MEDS: NICOTINE 7 MG/24 HOURS TOPICAL PATCH TD SCH (10:41)
--- NOTE | 2020-01-25 13:01 | PN ---
S CIWA - CIWA Score Nausea/Vomitin-Mild Nausea/No Vomiting Muscle Tremors: None Anxiety: 1-Mildly Anxious Agitation: 1-Slight > Activity Paroxysmal Sweats: 1-Minimal Palms Moist Orientation: 0-Oriented Tacttile Disturbances: 0-None Auditory Disturbances: 0-None Visual Disturbances: 0-None Headache: 1-Very Mild CIWA-Ar Total Score: 5 BHS Progress Note (SOAP) Subjective: Pt seen at bedside this morning. Pt reports improving withdrawal symptoms. Reports that she has had diarrhea x 2 days but is resolving on its own. Objective: Last Vital Signs Temp Pulse Resp BP Pulse Ox 97.8 F 77 18 113/69 100 01/25/20 09:03 01/25/20 09:03 01/25/20 09:03 01/25/20 09:03 01/25/20 06:56 Gen - NAD, well dev/well nourished, AOx3 CV - RRR, normal s1, s2 Pulm - CTAB, good air entry Mental Status - anxious MSK/ext - gait steady, normal inspection Skin - palms moist CBC,CMP WBC 6.0 K/mm3 (4.0-10.0) 01/24/20 07:00 RBC 4.15 M/mm3 (3.60-5.2) 01/24/20 07:00 Hgb 13.5 GM/dL (10.7-15.3) 01/24/20 07:00 Hct 37.9 % (32.4-45.2) 01/24/20 07:00 MCV 91.1 fl (80-96) 01/24/20 07:00 MCH 32.5 pg (25.7-33.7) 01/24/20 07:00 MCHC 35.6 g/dl (32.0-36.0) 01/24/20 07:00 RDW 14.2 % (11.6-15.6) 01/24/20 07:00 Plt Count 126 K/MM3 (134-434) L D 01/24/20 07:00 MPV 9.2 fl (7.5-11.1) 01/24/20 07:00 Sodium 138 mmol/L (136-145) 01/24/20 07:00 Potassium 3.7 mmol/L (3.5-5.1) 01/24/20 07:00 Chloride 103 mmol/L (98-107) 01/24/20 07:00 Carbon Dioxide 27 mmol/L (21-32) 01/24/20 07:00 Anion Gap 7 MMOL/L (8-16) L 01/24/20 07:00 BUN 10.7 mg/dL (7-18) 01/24/20 07:00 Creatinine 0.5 mg/dL (0.55-1.3) L 01/24/20 07:00 Est GFR (CKD-EPI)AfAm 153.73 01/24/20 07:00 Est GFR (CKD-EPI)NonAf 132.64 01/24/20 07:00 Random Glucose 78 mg/dL (74-106) 01/24/20 07:00 Calcium 8.7 mg/dL (8.5-10.1) 01/24/20 07:00 Total Bilirubin 0.8 mg/dL (0.2-1) 01/24/20 07:00 AST 16 U/L (15-37) 01/24/20 07:00 ALT 23 U/L (13-61) 01/24/20 07:00 Alkaline Phosphatase 70 U/L (45-117) 01/24/20 07:00 Total Protein 5.9 g/dl (6.4-8.2) L 01/24/20 07:00 Albumin 3.0 g/dl (3.4-5.0) L 01/24/20 07:00 01/25/20 12:59 Assessment: Pt with improving alcohol withdrawal symptoms. 01/25/20 13:00 Plan: - Continue librium detox regimen
[2020-01-25] MEDS: THIAMINE HCL 100 MG TABLET (FP) PO SCH (22:02)
[2020-01-25] MEDS: MELATONIN 5 MG TABLETS PO SCH (22:02)
[2020-01-26] MEDS ORDERED: chlordiazePOXIDE HCL 10 MG CAPSULE PO PRN
[2020-01-26] MEDS: hydrOXYzine PAMOATE 25 MG CAPSULE (FP) PO SCH ×3 (06:23→13:38)
[2020-01-26] MEDS: chlordiazePOXIDE HCL 10 MG CAPSULE PO SCH ×2 (06:23→10:00)
[2020-01-26] MEDS: PRENATAL VITAMINS W/ FOLIC ACID TABLET (FP) PO SCH (10:00)
[2020-01-26] MEDS: NICOTINE 7 MG/24 HOURS TOPICAL PATCH TD SCH (10:00)
--- NOTE | 2020-01-26 13:54 | DS ---
[facility] Detox Discharge Summary Admission Date: 01/23/20 Discharge Date: 01/26/20 (Pt left AMA.) - History Present History: Alcohol Dependence, Cocaine Dependence Additional Comments: Pt left AMA. Pt did not complete the detox protocol. Pt states, "I just have to leave, I'm done". An attempt to let pt stay and complete the detox protocol failed. pt is encouraged to follow-up with an outpatient CD program and also to follow-up with her pmd which she verbalized understanding. Pt is AOX3, in no acute respiratory distress, Full ROM, and ambulatory. Pertinent Past History: h/o alcohol and cocaine use disorder. - Physical Exam Results Vital Signs: Vital Signs Temperature 97.7 F 01/26/20 08:41 Pulse Rate 85 01/26/20 08:41 Respiratory Rate 18 01/26/20 08:41 Blood Pressure 105/69 01/26/20 08:41 O2 Sat by Pulse Oximetry (%) 99 01/26/20 06:15 Vital Signs 01/26/20 01/26/20 06:15 08:41 Temperature 97.9 F 97.7 F Pulse Rate 69 85 Respiratory 18 18 Rate Blood Pressure 100/70 105/69 O2 Sat by Pulse 99 Oximetry (%) Laboratory Last Values WBC 6.0 K/mm3 (4.0-10.0) 01/24/20 07:00 RBC 4.15 M/mm3 (3.60-5.2) 01/24/20 07:00 Hgb 13.5 GM/dL (10.7-15.3) 01/24/20 07:00 Hct 37.9 % (32.4-45.2) 01/24/20 07:00 MCV 91.1 fl (80-96) 01/24/20 07:00 MCH 32.5 pg (25.7-33.7) 01/24/20 07:00 MCHC 35.6 g/dl (32.0-36.0) 01/24/20 07:00 RDW 14.2 % (11.6-15.6) 01/24/20 07:00 Plt Count 126 K/MM3 (134-434) L D 01/24/20 07:00 MPV 9.2 fl (7.5-11.1) 01/24/20 07:00 Sodium 138 mmol/L (136-145) 01/24/20 07:00 Potassium 3.7 mmol/L (3.5-5.1) 01/24/20 07:00 Chloride 103 mmol/L (98-107) 01/24/20 07:00 Carbon Dioxide 27 mmol/L (21-32) 01/24/20 07:00 Anion Gap 7 MMOL/L (8-16) L 01/24/20 07:00 BUN 10.7 mg/dL (7-18) 01/24/20 07:00 Creatinine 0.5 mg/dL (0.55-1.3) L 01/24/20 07:00 Est GFR (CKD-EPI)AfAm 153.73 01/24/20 07:00 Est GFR (CKD-EPI)NonAf 132.64 01/24/20 07:00 Random Glucose 78 mg/dL (74-106) 01/24/20 07:00 Calcium 8.7 mg/dL (8.5-10.1) 01/24/20 07:00 Total Bilirubin 0.8 mg/dL (0.2-1) 01/24/20 07:00 AST 16 U/L (15-37) 01/24/20 07:00 ALT 23 U/L (13-61) 01/24/20 07:00 Alkaline Phosphatase 70 U/L (45-117) 01/24/20 07:00 Total Protein 5.9 g/dl (6.4-8.2) L 01/24/20 07:00 Albumin 3.0 g/dl (3.4-5.0) L 01/24/20 07:00 POC Urine HCG, Qual Negative 01/23/20 17:03 Syphilis Serology Non-reactive (NONREACTIVE) 01/23/20 07:00 COVID-19 (LIZETTE) Not detected (Not Detected) 01/23/20 18:30 Labs noted. Pertinent Admission Physical Exam Findings: withdrawal symptoms. - Treatment Hospital Course: Detox Protocol Followed - Medication Discharge Medications: Ambulatory Orders NK [No Known Home Medication] 01/23/20 - Diagnosis (1) Alcohol dependence with uncomplicated withdrawal Status: Acute (2) Cocaine abuse Status: Chronic (3) Alcohol use disorder Status: Chronic - AMA Did Patient Leave Against Medical Advice: Yes
[2020-01-26 14:10] VITALS: BP 123/74; PULSE 94; TEMP 97.5
[2020-01-27] MEDS ORDERED: chlordiazePOXIDE HCL 10 MG CAPSULE PO SCH (05:00)
[2020-01-28] MEDS ORDERED: chlordiazePOXIDE HCL 10 MG CAPSULE PO ONE (05:00)
== END 2020-01-26 14:17 | disposition left against medical advice (07) | DRG 770 ==
LOC: YASAS 15:21 → Y3N 18:24
PROVIDERS: ADMIT Allergy & Immunology; ATTEND Allergy & Immunology
PROC: HZ2ZZZZ Detoxification Services for Substance Abuse Treatment (ICD-10-PCS; principal; 2020-01-23)
DX: F10.230 Alcohol dependence with withdrawal, uncomplicated (principal); F14.20 Cocaine dependence, uncomplicated; F16.20 Hallucinogen dependence, uncomplicated; Z86.19 Personal history of other infectious and parasitic diseases; Z56.0 Unemployment, unspecified; Z59.0 Homelessness; Z91.013 Allergy to seafood
CPT/HCPCS: 36415; 80053; 81025; 85027; 86780; 93005; 93010; C9803; U0003

== ENCOUNTER 2022-06-24 13:23 | Emergency (ER) | payer OTHER ==
[2022-06-24 13:40] VITALS: BP 120/82; PULSE 80; RESP 20; TEMP 98; BMI 26.0
[2022-06-24] MEDS ORDERED: NAPROXEN 500 MG TABLET PO ONE (14:26)
[2022-06-24] MEDS ORDERED: NAPROXEN 500 MG TABLET ONE (14:56)
== END 2022-06-24 18:11 | disposition home or self-care (01) ==
LOC: JER 13:23 → JERFT 13:23
DX: R68.84 Jaw pain (principal); Y04.8XXA Assault by other bodily force, initial encounter
CPT/HCPCS: 70486-TC; 99284-25